=== PATIENT | male | born 1965 | race Caucasian/White ===

== ENCOUNTER 2022-01-15 19:29 | Emergency (ER) | payer OTHER ==
[2022-01-15 20:05] LABS: Absolute Neutrophil Ct (ANC) 4.24 (1.4-6.9); Basophil (Absolute #) 0.01 (0-0.4); Eosinophil % 2.4 % (0.00-5.0); Eosinophil (Absolute #) 0.14 (0-0.5); Hematocrit 42.2 % (42-50); Hemoglobin 13.7 gm/dl (12.5-18.0); Lymphocyte (Absolute #) 0.81 (1.0-4.6); Lymphocytes % 14.2 % (24.0-44.0); Mean Cell Volume 88.3 fl (78-100); Mean Corpuscular Hemoglobin 28.7 pg (26-32); Mean Corpuscular Hgb Concent. 32.5 g/dl (32-36); Mean Platelet Volume 10.9 fl (7.5-11.0); Monocyte (Absolute #) 0.52 (0.0-1.3); Monocytes % 9.1 % (0.0-12.0); Neutrophil % 74.1 % (36.0-66.0); Platelet Count 177 K/mm3 (150-450); Red Blood Count 4.78 M/mm3 (4.1-5.6); Red Cell Distribution Width 14.4 % (11.5-14.0); White Blood Count 5.7 K/mm3 (4.0-10.5)
--- NOTE | 2022-01-15 20:12 | ERPHSYRPT ---
- History of Present Illness Source: patient Exam Limitations: no limitations Patient Subjective Stated Complaint: Pt states "My heart starting feeling like it was fluttering. I have hx of afib. My blood pressure at home was high and my heart rate was 147 at home." Triage Nursing Assessment: Pt alert and oriented x3, pt ambulatory to cot, pt has hx of afib, pt c/o palpitations since 1830. pt took his dose of amiodarone 200 mg before arrival, pt is currently in sinus rhythm. pt denies chest pain and sob at this time. Physician History: 56 yo wm w h/o Afib who is on Eliquis presents after having episode of Afib before arrival. Pt is on Eliquis bid He denies chest pain but had mild dyspnea which has resolved. N/V/diaphoresis are denied. Pt has an appointment w his configuration manager in AM. Timing/Duration: resolved prior to arrival Activities at Onset: other (Light activity) Quality: other (No pain) Chest Pain Radiation: no radiation Severity of Pain-Max: none Severity of Pain-Current: none Modifying Factors: Improves With: nothing Nitro Today/Relief: no nitro taken today Aspirin Treatment Today: no aspirin today Associated Symptoms: shortness of breath (Mildly dyspneic), No nausea, No vomiting, No abdominal pain, No heartburn, No diaphoresis, No cough, No chills, No chest pain, No fever, No headaches, No loss of appetite, No malaise, No rash, No syncope, No seizure, No weakness Prior Chest Pain/Cardiac Workup: no prior chest pain Allergies/Adverse Reactions: Penicillins Allergy (Mild, Verified 01/15/22 19:35) Hives Home Medications: Amiodarone HCl 200 mg PO DAILY 01/15/22 [History] Apixaban [Eliquis 5 mg Tablet] 5 mg PO DAILY 01/15/22 [History] Atorvastatin Calcium [Lipitor 40Mg] 40 mg PO DAILY 01/15/22 [History] Famotidine [Pepcid] 40 mg PO DAILY 01/15/22 [History] Metoprolol Succinate 25 mg Xl* [Toprol-Xl 25MG Tablets] 25 mg PO BID 01/15/22 [History] Hx Tetanus, Diphtheria Vaccination/Date Given: Yes Hx Influenza Vaccination/Date Given: No Hx Pneumococcal Vaccination/Date Given: No Immunizations Up to Date: Yes Travel Risk - International Travel Have you traveled outside of the country in past 3 weeks: No - Coronavirus Screening Are you exhibiting any of the following symptoms?: No Close contact with a COVID-19 positive Pt in past 14-21 Days: No - Vaccine Status Have you recieved a Covid-19 vaccination: Yes Gyroscopic Engineering Technician: Moderna - Vaccination Dates Date of 2cond Vaccination (if applicable): 2020 - Review of Systems Constitutional: No Symptoms Eyes: No Symptoms Ears, Nose, & Throat: No Symptoms Respiratory: No Symptoms, Dyspnea Cardiac: No Symptoms, Palpitations Abdominal/Gastrointestinal: No Symptoms Genitourinary Symptoms: No Symptoms Musculoskeletal: No Symptoms Skin: No Symptoms Neurological: No Symptoms Psychological: No Symptoms Endocrine: No Symptoms Hematologic/Lymphatic: No Symptoms Immunological/Allergic: No Symptoms - Past Medical History Pertinent Past Medical History: Yes Neurological History: No Pertinent History ENT History: No Pertinent History Cardiac History: Arrhythmia, Hypertension Respiratory History: No Pertinent History Endocrine Medical History: No Pertinent History Musculoskeletal History: No Pertinent History GI Medical History: GERD History: No Pertinent History Psycho-Social History: No Pertinent History Male Reproductive Disorders: No Pertinent History - Past Surgical History Past Surgical History: No - Social History Smoking Status: Never smoker Exposure to second hand smoke: No Drug Use: none Patient Lives Alone: No Significant Family History: no pertinent family hx - Nursing Vital Signs Nursing Vital Signs: Initial Vital Signs Temperature 98.5 F 01/15/22 19:36 Pulse Rate 85 01/15/22 19:36 Respiratory Rate 16 01/15/22 19:36 Blood Pressure 145/77 01/15/22 19:36 O2 Sat by Pulse Oximetry 99 01/15/22 19:36 Pain Scale Pain Intensity 0 Mildly hypertensive - Physical Exam General Appearance: no apparent distress Eye Exam: PERRL/EOMI, eyes nml inspection Ears, Nose, Throat Exam: normal ENT inspection, TMs normal, pharynx normal, moist mucous membranes Neck Exam: normal inspection, non-tender, supple, full range of motion, No meningismus, No mass, No Brudzinski, No Kernig's, No carotid bruit Respiratory Exam: normal breath sounds, lungs clear, airway intact Cardiovascular Exam: regular rate/rhythm, normal heart sounds, normal peripheral pulses, No murmur Gastrointestinal/Abdomen Exam: soft, normal bowel sounds, No tenderness Back Exam: normal inspection, normal range of motion Extremity Exam: normal inspection, normal range of motion Neurologic Exam: alert, oriented x 3, cooperative, senior courtroom clerk II-XII nml as tested, normal mood/affect, nml cerebellar function, nml station & gait, sensation nml, No motor deficits, No sensory deficit Skin Exam: normal color, warm, dry Lymphatic Exam: No adenopathy SpO2 Interpretation: normal SpO2: 99 O2 Delivery: Room Air - Course EKG Interpreted by Me: RATE (NSR/R81/[place] prolonged QTc/No acute ST segment changes/Possible early LAFB) Ordered Tests: Active Orders 24 hr Category Date Time Status EKG-ER Only STAT Care 01/15/22 20:36 Completed IV Insertion STAT Care 01/15/22 20:35 Completed CBC W DIFF Stat Lab 01/15/22 19:50 Completed CMP Stat Lab 01/15/22 19:50 Completed NT PRO BNP Stat Lab 01/15/22 19:50 Completed PROTIME WITH INR Stat Lab 01/15/22 19:50 Completed PTT Stat Lab 01/15/22 19:50 Completed TROPONIN Q3H Lab 01/15/22 19:50 Completed Lab/Rad Data: Laboratory Result Diagrams 01/15/22 19:50 01/15/22 19:50 Laboratory Results 01/15/22 01/15/22 01/15/22 Range/Units 19:50 19:50 19:50 WBC (4.0-10.5) K/mm3 RBC (4.1-5.6) M/mm3 Hgb (12.5-18.0) gm/dl Hct (42-50) % MCV (78-100) fl MCH (26-32) pg MCHC (32-36) g/dl RDW (11.5-14.0) % Plt Count (150-450) K/mm3 MPV (7.5-11.0) fl Gran % (36.0-66.0) % Eos # (Auto) (0-0.5) Absolute Lymphs (auto) (1.0-4.6) Absolute Monos (auto) (0.0-1.3) Lymphocytes % (24.0-44.0) % Monocytes % (0.0-12.0) % Eosinophils % (0.00-5.0) % Basophils % (0.0-0.4) % Absolute Granulocytes (1.4-6.9) Basophils # (0-0.4) PT 15.0 H (9.4-12.5) SECONDS INR 1.27 (0.8-3.0) APTT 40.3 H (25.1-36.5) SECONDS Sodium 140 (137-145) mmol/L Potassium 4.0 (3.5-5.1) mmol/L Chloride 109 H (98-107) mmol/L Carbon Dioxide 20 L (22-30) mmol/L Anion Gap 15.1 H (5-15) MEQ/L BUN 18 (9-20) mg/dL Creatinine 0.84 (0.66-1.25) mg/dL Estimated GFR > 60.0 ML/MIN Glucose 113 H (74-106) mg/dL Calcium 9.0 (8.4-10.2) mg/dL Total Bilirubin 1.00 (0.2-1.3) mg/dL AST 41 (17-59) U/L ALT 44 (0-50) U/L Alkaline Phosphatase 118 (38-126) U/L Troponin I < 0.012 (0.000-0.034) ng/mL NT-Pro-B Natriuret Pep 188 (0-900) pg/mL Serum Total Protein 7.1 (6.3-8.2) g/dL Albumin 4.2 (3.5-5.0) g/dL 01/15/22 Range/Units 19:50 WBC 5.7 (4.0-10.5) K/mm3 RBC 4.78 (4.1-5.6) M/mm3 Hgb 13.7 (12.5-18.0) gm/dl Hct 42.2 (42-50) % MCV 88.3 (78-100) fl MCH 28.7 (26-32) pg MCHC 32.5 (32-36) g/dl RDW 14.4 H (11.5-14.0) % Plt Count 177 (150-450) K/mm3 MPV 10.9 (7.5-11.0) fl Gran % 74.1 H (36.0-66.0) % Eos # (Auto) 0.14 (0-0.5) Absolute Lymphs (auto) 0.81 L (1.0-4.6) Absolute Monos (auto) 0.52 (0.0-1.3) Lymphocytes % 14.2 L (24.0-44.0) % Monocytes % 9.1 (0.0-12.0) % Eosinophils % 2.4 (0.00-5.0) % Basophils % 0.2 (0.0-0.4) % Absolute Granulocytes 4.24 (1.4-6.9) Basophils # 0.01 (0-0.4) PT (9.4-12.5) SECONDS INR (0.8-3.0) APTT (25.1-36.5) SECONDS Sodium (137-145) mmol/L Potassium (3.5-5.1) mmol/L Chloride (98-107) mmol/L Carbon Dioxide (22-30) mmol/L Anion Gap (5-15) MEQ/L BUN (9-20) mg/dL Creatinine (0.66-1.25) mg/dL Estimated GFR ML/MIN Glucose (74-106) mg/dL Calcium (8.4-10.2) mg/dL Total Bilirubin (0.2-1.3) mg/dL AST (17-59) U/L ALT (0-50) U/L Alkaline Phosphatase (38-126) U/L Troponin I (0.000-0.034) ng/mL NT-Pro-B Natriuret Pep (0-900) pg/mL Serum Total Protein (6.3-8.2) g/dL Albumin (3.5-5.0) g/dL - Progress Progress: improved Progress Note: 01/15/22 20:43 Pt wo Afib/chest pain/dyspnea in ER Pt to see refrigerator room clerk in AM Counseled pt/family regarding: lab results, diagnosis, need for follow-up - Departure Departure Disposition: Home Clinical Impression: Paroxysmal A-fib Condition: Stable Critical Care Time: No Referrals: LINDA MATHEWS MD [Primary Care Provider] - Follow up/PCP as directed Instructions: Arrhythmias (DC), Palpitations (DC) Additional Instructions: Keep your appointment with the Heading Pinner in AM Return to ER for chest pain, persistent heart rate greater than 110, or shortness of breath
[2022-01-15 20:14] LABS: INR 1.27 (0.8-3.0)
[2022-01-15 20:17] LABS: PTT 40.3 SECONDS (25.1-36.5)
[2022-01-15 20:24] LABS: ALBUMIN 4.2 g/dL (3.5-5.0); ALKALINE PHOSPHATASE 118 U/L (38-126); ANION GAP 15.1 MEQ/L (5-15); BLOOD UREA NITROGEN 18 mg/dL (9-20); CHLORIDE 109 mmol/L (98-107); Carbon Dioxide 20 mmol/L (22-30); Creatinine 1 0.84 mg/dL (0.66-1.25); EST GLOMERULAR FILTRATION RATE > 60.0 ML/MIN; Glucose 113 mg/dL (74-106); NT PRO BNP 188 pg/mL (0-900); SGOT/AST 41 U/L (17-59); SGPT/ALT 44 U/L (0-50); SODIUM 140 mmol/L (137-145); Total Protein 7.1 g/dL (6.3-8.2)
[2022-01-15 20:49] VITALS: BP 124/72; PULSE 68
[2022-01-15 23:30] VITALS: O2SAT 99
== END 2022-01-15 20:52 | disposition home or self-care (01) ==
LOC: ED 19:29
DX: I48.0 Paroxysmal atrial fibrillation (principal); Z79.01 Long term (current) use of anticoagulants; R06.00 Dyspnea, unspecified; I10 Essential (primary) hypertension; Z79.899 Other long term (current) drug therapy
CPT/HCPCS: 36000; 36415; 80053; 83880; 84484; 85025; 85610; 85730; 93005; 99284

== ENCOUNTER 2023-11-23 06:32 | Emergency (ER) | payer OTHER ==
--- NOTE | 2023-11-23 06:49 | ERPHSYRPT ---
- History of Present Illness Source: patient Exam Limitations: no limitations Hx Tetanus, Diphtheria Vaccination/Date Given: Yes Hx Influenza Vaccination/Date Given: No Hx Pneumococcal Vaccination/Date Given: No <KENDRA BEARDEN - Last Filed: 11/23/23 07:33> <GEORGE ATWOOD - Last Filed: 11/23/23 10:48> - History of Present Illness Time Seen by Provider: 11/23/23 06:35 Physician History: For the past 3 days pt has had fever up to 100.1 degrees, a sore throat and cough today productive of white phlegm. This morning pt states he had a fast he art rate. Pt denies vomiting, diarrhea, headache, rash. (KENDRA BEARDEN) Allergies/Adverse Reactions: Penicillins Allergy (Mild, Verified 11/23/23 06:33) Hives Hives Home Medications: Apixaban [Eliquis 5 mg Tablet] 5 mg PO BID 01/15/22 [History] Famotidine [Pepcid] 20 mg PO DAILY 01/15/22 [History] Metoprolol Succinate 25 mg Xl* [Toprol-Xl 25MG Tablets] 25 mg PO BID 01/15/22 [History] dilTIAZem HCL [Diltiazem 24Hr ER] 120 mg PO DAILY 11/23/23 [History] Travel Risk - Vaccine Status Have you recieved a Covid-19 vaccination: Yes Card Painter: Moderna - Vaccination Dates Date of 2cond Vaccination (if applicable): 2020 <KENDRA BEARDEN - Last Filed: 11/23/23 07:33> - Review of Systems Constitutional: Fever Ears, Nose, & Throat: Throat Pain Respiratory: Cough Abdominal/Gastrointestinal: No Vomiting, No Diarrhea Skin: No Rash Neurological: No Headache <KENDRA BEARDEN - Last Filed: 11/23/23 07:33> - Past Medical History Pertinent Past Medical History: Yes Neurological History: No Pertinent History ENT History: No Pertinent History Cardiac History: Arrhythmia, Hypertension Respiratory History: No Pertinent History Endocrine Medical History: No Pertinent History Musculoskeletal History: No Pertinent History GI Medical History: GERD History: No Pertinent History Psycho-Social History: No Pertinent History Male Reproductive Disorders: No Pertinent History - Past Surgical History Past Surgical History: No - Social History Smoking Status: Never smoker Exposure to second hand smoke: No Drug Use: none Patient Lives Alone: No Significant Family History: no pertinent family hx <KENDRA BEARDEN - Last Filed: 11/23/23 07:33> - Physical Exam General Appearance: alert Eye Exam: PERRL/EOMI Ears, Nose, Throat Exam: pharyngeal erythema Neck Exam: normal inspection Respiratory Exam: lungs clear Cardiovascular Exam: normal heart sounds Gastrointestinal/Abdomen Exam: normal bowel sounds Back Exam: normal inspection Extremity Exam: No pedal edema Neurologic Exam: alert, cooperative Skin Exam: warm, dry, pale <KENDRA BEARDEN OLI - Last Filed: 11/23/23 07:33> - Nursing Vital Signs Nursing Vital Signs: Initial Vital Signs Temperature 99.9 F 11/23/23 06:34 Pulse Rate 92 H 11/23/23 06:34 Respiratory Rate 18 11/23/23 06:34 Blood Pressure 109/73 11/23/23 06:34 O2 Sat by Pulse Oximetry 97 11/23/23 06:34 Pain Scale Pain Intensity 0 - Course EKG Interpreted by Me: RATE (94), Sinus Rhythm, NORMAL AXIS, Other (QTc = 436) <KENDRA BEARDEN - Last Filed: 11/23/23 07:33> Ordered Tests: Active Orders 24 hr Category Date Time Status Trailer Park Manager STAT Care 11/23/23 06:51 Active EKG-ER Only STAT Care 11/23/23 06:49 Active IV Insertion STAT Care 11/23/23 06:49 Active CHEST 2 VIEWS (PA AND LAT) Stat Exams 11/23/23 06:50 Completed CBC W DIFF Stat Lab 11/23/23 07:15 Completed CMP Stat Lab 11/23/23 07:15 Completed MAGNESIUM Stat Lab 11/23/23 07:15 Completed TROPONIN Q4H Lab 11/23/23 07:15 Completed TROPONIN Q4H Lab 11/23/23 11:00 Ordered TROPONIN Q4H Lab 11/23/23 15:00 Ordered UA W/RFX UR CULTURE Stat Lab 11/23/23 07:25 Completed Medication Summary Generic Name Dose Route Start Last Admin Trade Name Freq PRN Reason Stop Dose Admin Sodium Chloride 1,000 mls @ 100 mls/hr 11/23/23 07:00 11/23/23 08:37 Sodium Chloride 0.9% 1000 Ml IV 12/23/23 06:59 150 mls/hr .Q10H SUMAYA Infusion Lab/Rad Data: Laboratory Result Diagrams 11/23/23 07:15 11/23/23 07:15 Laboratory Results 11/23/23 11/23/23 11/23/23 Range/Units 07:25 07:15 07:15 WBC (4.0-10.5) x10^3/uL RBC (4.1-5.6) x10^6/uL Hgb (12.5-18.0) g/dL Hct (42-50) % MCV (78-100) fL MCH (26-32) pg MCHC (32-36) g/dL RDW (11.5-14.0) % Plt Count (150-450) x10^3/uL MPV (7.5-11.0) fL Gran % (36.0-66.0) % Immature Gran % (Auto) (0.00-0.4) % Nucleat RBC Rel Count (0.00-0.1) % Eos # (Auto) (0-0.5) x10^3/uL Immature Gran # (Auto) (0.00-0.03) x10^3u/L Absolute Lymphs (auto) (1.0-4.6) x10^3/uL Absolute Monos (auto) (0.0-1.3) x10^3/uL Absolute Nucleated RBC (0.00-0.01) x10^3u/L Lymphocytes % (24.0-44.0) % Monocytes % (0.0-12.0) % Eosinophils % (0.00-5.0) % Basophils % (0.0-0.4) % Absolute Granulocytes (1.4-6.9) x10^3/uL Basophils # (0-0.4) x10^3/uL Sodium 136 (135-145) mmol/L Potassium 4.0 (3.5-5.1) mmol/L Chloride 104 (98-107) mmol/L Carbon Dioxide 21 L (22-30) mmol/L Anion Gap 14.9 (5-15) MEQ/L BUN 14 (9-20) mg/dL Creatinine 0.77 (0.66-1.25) mg/dL Estimated GFR 102.5 ML/MIN Glucose 102 (74-106) mg/dL Calcium 8.7 (8.4-10.2) mg/dL Magnesium 2.0 (1.6-2.3) mg/dL Total Bilirubin 0.30 (0.2-1.3) mg/dL AST 35 (17-59) U/L ALT 23 (0-50) U/L Alkaline Phosphatase 94 (38-126) U/L Troponin I < 0.012 (0.000-0.034) ng/mL Serum Total Protein 7.5 (6.3-8.2) g/dL Albumin 4.5 (3.5-5.0) g/dL Urine Color Yellow (Yellow) Urine Appearance Clear (Clear) Urine pH 5.5 (4.6-8.0) Ur Specific [place] 1.020 (1.005-1.030) Urine Protein Trace A (Negative) Urine Glucose (UA) Negative (Negative) mg/dL Urine Ketones 40 A (Negative) Urine Blood Negative (Negative) Urine Nitrite Negative (Negative) Urine Bilirubin Negative (Negative) Urine Urobilinogen 1.0 A (0.2) mg/dL Ur Leukocyte Esterase Negative (Negative) U Hyaline Cast (Auto) 3-5 A (0-2) /LPF Urine Microscopic RBC 0-2 (0-5) /HPF Urine Microscopic WBC 0-2 (0-5) /HPF Ur Epithelial Cells None Seen (None Seen) /HPF Urine Bacteria None Seen (None Seen) /HPF Urine Culture Reflexed NO (NO) Influenza Type A Ag (NEGATIVE) Influenza Type B Ag (NEGATIVE) RSV (PCR) (NEGATIVE) SARS-CoV-2 (PCR) (NEGATIVE) Group A Strep Antibody (NEGATIVE) Slides for Path Review 11/23/23 11/23/23 11/23/23 Range/Units 07:15 07:00 07:00 WBC 5.6 (4.0-10.5) x10^3/uL RBC 4.15 (4.1-5.6) x10^6/uL Hgb 8.1 L (12.5-18.0) g/dL Hct 28.8 L (42-50) % MCV 69.4 L (78-100) fL MCH 19.5 L (26-32) pg MCHC 28.1 L (32-36) g/dL RDW 16.6 H (11.5-14.0) % Plt Count 215 (150-450) x10^3/uL MPV 10.4 (7.5-11.0) fL Gran % 85.3 H (36.0-66.0) % Immature Gran % (Auto) 0.4 (0.00-0.4) % Nucleat RBC Rel Count 0.0 (0.00-0.1) % Eos # (Auto) 0.01 (0-0.5) x10^3/uL Immature Gran # (Auto) 0.02 (0.00-0.03) x10^3u/L Absolute Lymphs (auto) 0.25 L (1.0-4.6) x10^3/uL Absolute Monos (auto) 0.51 (0.0-1.3) x10^3/uL Absolute Nucleated RBC 0.00 (0.00-0.01) x10^3u/L Lymphocytes % 4.5 L (24.0-44.0) % Monocytes % 9.2 (0.0-12.0) % Eosinophils % 0.2 (0.00-5.0) % Basophils % 0.4 (0.0-0.4) % Absolute Granulocytes 4.74 (1.4-6.9) x10^3/uL Basophils # 0.02 (0-0.4) x10^3/uL Sodium (135-145) mmol/L Potassium (3.5-5.1) mmol/L Chloride (98-107) mmol/L Carbon Dioxide (22-30) mmol/L Anion Gap (5-15) MEQ/L BUN (9-20) mg/dL Creatinine (0.66-1.25) mg/dL Estimated GFR ML/MIN Glucose (74-106) mg/dL Calcium (8.4-10.2) mg/dL Magnesium (1.6-2.3) mg/dL Total Bilirubin (0.2-1.3) mg/dL AST (17-59) U/L ALT (0-50) U/L Alkaline Phosphatase (38-126) U/L Troponin I (0.000-0.034) ng/mL Serum Total Protein (6.3-8.2) g/dL Albumin (3.5-5.0) g/dL Urine Color (Yellow) Urine Appearance (Clear) Urine pH (4.6-8.0) Ur Specific [place] (1.005-1.030) Urine Protein (Negative) Urine Glucose (UA) (Negative) mg/dL Urine Ketones (Negative) Urine Blood (Negative) Urine Nitrite (Negative) Urine Bilirubin (Negative) Urine Urobilinogen (0.2) mg/dL Ur Leukocyte Esterase (Negative) U Hyaline Cast (Auto) (0-2) /LPF Urine Microscopic RBC (0-5) /HPF Urine Microscopic WBC (0-5) /HPF Ur Epithelial Cells (None Seen) /HPF Urine Bacteria (None Seen) /HPF Urine Culture Reflexed (NO) Influenza Type A Ag POSITIVE A (NEGATIVE) Influenza Type B Ag NEGATIVE (NEGATIVE) RSV (PCR) NEGATIVE (NEGATIVE) SARS-CoV-2 (PCR) NEGATIVE (NEGATIVE) Group A Strep Antibody NOT DETECTED (NEGATIVE) Slides for Path Review YES <KENDRA BEARDEN - Last Filed: 11/23/23 07:33> - Progress Progress: improved Air Movement: good Blood Culture(s) Obtained: No Antibiotics given: No Will see patient in: hospital (observation) Counseled pt/family regarding: lab results, diagnosis, need for follow-up, rad results <GEORGE ATWOOD - Last Filed: 11/23/23 10:48> - Progress Progress Note: 11/23/23 07:16 Pt's case discussed with and transferred to Dr. Atwood @ [facility]. (KENDRA BEARDEN) 11/23/23 08:01 I took pt care from Dr Bearden at 07. On my exam of pt he was resting comfortably, vitally stable, respirations unlabored, pt reporting feeling fatigued and stating he has been feeling "worn down" for 3d. Lungs CTA on exam, HR 80s and regular. 11/23/23 08:02 11/23/23 08:32 Positive for influenza A 11/23/23 08:37 discussed lab finding of hgb 8.1 - pt states he has been chronically anemic from significant iron deficiency since 2019, has been seeing Dr Sousa at [place] for the past few years, has appt scheduled with him for next week. Pt reports he has had mutliple iron infusions as an outpatient. In setting of chronic iron deficiency anemia, will defer treatment at this time and have pt continue w/ outpatient f/u w/ hematology outpatient 11/23/23 08:54 I spoke w/ unemployment benefits claims taker Dr Dino Sousa regarding pt's case. He informed me that pt's last hgb in his office in 07/06 was 13 and his MCV was 89. Today hgb i s 8.1 and MCV is 69. Discussed concern for GI bleed and need for colonoscopy, he states pt has refused in the past. I spoke w/ pt regarding my conversation w/ hematology, I recommend admission for further w/u of possible GI bleed, pt is willing to have colonoscopy if needed. Will plan to admit w/ surgery consult, will discuss w/ hospitalist fashion model. 11/23/23 09:38 Plan to admit, spoke w/ hospitalist Dr Pearson @ 0928, will confirm w/ gen surg they are willing to see inpatient, page sent to Dr Jair Sousa 11/23/23 10:42 I spoke w/ Dr Samantha Sousa - gen surg, who agrees to see pt in hospital, she states s he would likely not perform endoscopy today in setting of acute flu, but she would be happy to get pt set up for further w/u will admit at this time (GEORGE ATWOOD) Medical Desision Making - Discussion of managment Care discussed with:: specialist (Dr Samantha Sousa - gen surg; Dr Sousa - heme/onc) Reviewed:: Test results, Need for additional workup Agreed on:: Treatment plan, need for follow-up, place in obs Will see patient: in hospital - Diagnostic Testing Diagnostic test were ordered, analyzed, and reviewed by me: Yes Radiological Interpretation: Reviewed by me, Teleradiologist Report - Risk of complications The pt has a mod risk of morbidity or mortality based on: Need for minor surgical intervention in patient with know risk factors <GOERGE ATWOOD - Last Filed: 11/23/23 10:48> <KENDRA BEARDEN - Last Filed: 11/23/23 07:33> - Departure Departure Disposition: Observation Critical Care Time: No <GEORGE ATWOOD - Last Filed: 11/23/23 10:48> - Departure Clinical Impression: Influenza A Anemia Qualifiers: Anemia type: other cause Other causes of anemia: other cause, not classified Qualified Code(s): D64.89 - Other specified anemias Condition: Stable Referrals: LINDA MATHEWS MD [Primary Care Provider] - Follow up/PCP as directed
[2023-11-23 06:55] VITALS: TEMP 99.9
[2023-11-23] MEDS ORDERED: Sodium Chloride 0.9% 1000 ML 1,000 ML ONE (07:08)
[2023-11-23] MEDS: Sodium Chloride 0.9% 1000 ML 1,000 ML IV SCH (07:09)
[2023-11-23 07:22] LABS: Absolute Neutrophil Ct (ANC) 4.74 x10^3/uL (1.4-6.9); BASOPHIL % 0.4 % (0.0-0.4); Basophil (Absolute #) 0.02 x10^3/uL (0-0.4); Eosinophil % 0.2 % (0.00-5.0); Eosinophil (Absolute #) 0.01 x10^3/uL (0-0.5); Hematocrit 28.8 % (42-50); Hemoglobin 8.1 g/dL (12.5-18.0); IMMATURE GRAN # 0.02 x10^3u/L (0.00-0.03); IMMATURE GRAN % 0.4 % (0.00-0.4); Lymphocyte (Absolute #) 0.25 x10^3/uL (1.0-4.6); Lymphocytes % 4.5 % (24.0-44.0); Mean Cell Volume 69.4 fL (78-100); Mean Corpuscular Hemoglobin 19.5 pg (26-32); Mean Corpuscular Hgb Concent. 28.1 g/dL (32-36); Mean Platelet Volume 10.4 fL (7.5-11.0); Monocyte (Absolute #) 0.51 x10^3/uL (0.0-1.3); Monocytes % 9.2 % (0.0-12.0); Neutrophil % 85.3 % (36.0-66.0); Platelet Count 215 x10^3/uL (150-450); Red Blood Count 4.15 x10^6/uL (4.1-5.6); Red Cell Distribution Width 16.6 % (11.5-14.0); White Blood Count 5.6 x10^3/uL (4.0-10.5)
[2023-11-23 07:39] LABS: ALBUMIN 4.5 g/dL (3.5-5.0); ANION GAP 14.9 MEQ/L (5-15); BILIRUBIN,TOTAL 0.3 mg/dL (0.2-1.3); Calcium 8.7 mg/dL (8.4-10.2); Creatinine 1 0.77 mg/dL (0.66-1.25); EST GLOMERULAR FILTRATION RATE 102.5 ML/MIN; Total Protein 7.5 g/dL (6.3-8.2)
[2023-11-23 08:25] LABS: INFLUENZA B NEGATIVE (NEGATIVE); RESPIRATORY SYNCTIAL VIRUS NEGATIVE (NEGATIVE); SARS-CoV-2 Xpert Express NEGATIVE (NEGATIVE)
[2023-11-23 08:28] LABS: Slide Review 1 YES
[2023-11-23 08:31] LABS: INFLUENZA A POSITIVE (NEGATIVE)
--- NOTE | 2023-11-23 08:43 | XRAY ---
Indication: Cough and short of breath. Comparison: October 22, 2009 PA/lateral chest again hyperinflated and clear. Heart not enlarged. Interval enlarging moderate-sized hiatal hernia with partial intrathoracic stomach. Bony thorax intact with osteopenia and mild degenerative changes. Impression: Nonacute hyperinflated chest with chronic features.
[2023-11-23 10:31] LABS: ADD URINE CULTURE? NO (NO); Appearance Clear (Clear); Bacteria None Seen /HPF (None Seen); Bilirubin Negative (Negative); Blood Negative (Negative); Epithelial Cells None Seen /HPF (None Seen); Glucose, Urine Negative (Negative); Ketones 40 (Negative); Leukocyte Esterase Negative (Negative); Nitrite Negative (Negative); Ph 5.5 (4.6-8.0); Protein,Urine Dip Trace (Negative); RBC 0-2 /HPF (0-5); WBC 0-2 /HPF (0-5)
[2023-11-23 11:05] VITALS: O2SAT 95
[2023-11-23 13:03] VITALS: BP 98/52; PULSE 83; RESP 23
== END 2023-11-23 13:13 | disposition home or self-care (01) ==
LOC: ED 06:32
DX: J10.1 Influenza due to other identified influenza virus with other respiratory manifestations (principal); D64.9 Anemia, unspecified; R06.02 Shortness of breath; R50.9 Fever, unspecified; I10 Essential (primary) hypertension; Z79.01 Long term (current) use of anticoagulants
CPT/HCPCS: 0241U; 36000; 36415; 71046; 80053; 81001; 83735; 84484; 85025; 87651; 93005; 93041; 99284